=== PATIENT | female | born 1945 | race Two or more races ===

== ENCOUNTER 2019-02-07 06:46 | Day surgery (SDC) | payer OTHER ==
[~2019-02-07 06:46] MED LIST: ENALAPRIL MALEA20 MG PO; SYNTHROID75 MCG
== END 2019-02-07 13:40 | disposition home or self-care (01) ==
LOC: CIR.AMB 06:46
DX: M65.842 Other synovitis and tenosynovitis, left hand (principal)

== ENCOUNTER 2023-09-07 06:23 | Day surgery (SDC) | payer OTHER ==
[2023-09-01 08:59] LABS: URINE APPEARANCE Clear; URINE BILIRRUBIN Negative (NEGATIVE); URINE BLOOD Small; URINE COLOR Yellow; URINE GLUCOSE Negative (NEGATIVE); URINE LEUKOCYTE Negative; URINE NITRATE Negative; URINE PROTEIN >=1000 (NEGATIVE); URINE UROBILINOGEN 0.2 E.U./dl
[2023-09-01 09:01] LABS: URINE BACTERIA 83.1 uL (0.0-1933); URINE RBC 26.7 uL (0.0-20.8); URINE WBC 3.8 uL (0.0-23.2)
[2023-09-01 09:14] LABS: HEMATOCRIT 40.7 % (36.0-45.00); HEMOGLOBIN 14.6 g/dL (12.0-15.00); MEAN CELL VOLUME 83.5 fL (80.00-100.00); MEAN CORPUSCULAR HEMOGLOBIN 29.9 pg (27.00-32.0); MEAN CORPUSCULAR HGB CONC 35.8 g/dl (32.0-36.0); PLATELET COUNT 444 K/uL (150-450); RED BLOOD COUNT 4.88 M/uL (4.00-6.00); RED CELL DISTRIBUTION WIDTH 15.8 % (11.5-14.5)
[2023-09-01 09:15] LABS: INR < 0.93; PARTIAL THROMBOPLASTIN TIME 25.4 SECONDS (22.0-34.0); PROTHROMBIN TIME 9.8 SECONDS (9.0-11.5)
[2023-09-01 09:20] LABS: ALBUMIN 2.3 gm/dL (3.4-5.0); BILIRUBIN TOTAL 0.59 mg/dL (0.3-1.2); CALCIUM 9.1 mg/dL (8.5-10.1); CREATININE SERUM 2.6 mg/dL (0.55-1.02); GFR 17.71; GLOBULINA 3.2 G/DL (2.4-3.5); POTASSIUM 3.96 mEq/L (3.5-5.1); TOTAL PROTEIN 5.5 gm/dL (6.4-8.2)
[~2023-09-07 06:23] MED LIST changes: +SYNTHROID125 MCG PO
== END 2023-09-07 17:10 | disposition home or self-care (01) ==
LOC: CIR.AMB 06:23
PROVIDERS: ATTEND Orthopaedic Surgery Hand Surgery
DX: S63.522A Sprain of radiocarpal joint of left wrist, initial encounter (principal); M65.232 Calcific tendinitis, left forearm; Z20.822 Contact with and (suspected) exposure to COVID-19; I10 Essential (primary) hypertension; E03.9 Hypothyroidism, unspecified